=== PATIENT | female | born 1955 | race African-American/Black ===

== ENCOUNTER 2016-10-12 01:27 | Emergency (ER) | payer MEDICAID ==
[~2016-10-12] VITALS: Ht 170.2 cm; Wt 70.0 kg
[~2016-10-12 01:27] MED LIST: ALBUAER3 INH; ASPI1TAB69 PO; B12-1CHW CHEW; BLOO1KIT59 SQ; GABA300C5 PO; GLIP5TAB8 PO; GLUC1TES SQ; LANC1MIS; LIDO4PAD TOP; METF500T4 PO; METR500T10 PO; MULT1TAB78 PO; OMEP20TA PO; PROM12.54 PO
[2016-10-12 01:31] VITALS: BP 201/92; PULSE 92; RESP 18; TEMP 98.4; O2SAT 100
[2016-10-12] MEDS ORDERED: ACETAMINOPHEN 325 MG TAB PO ONE (05:00)
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
[2016-10-12 05:16] LABS: ALKALINE PHOSPHATASE 76 U/L (45-117); TOTAL BILIRUBIN ADULT 0.4 MG/DL (0.2-1.0)
[2016-10-12 05:25] LABS: ALT (GPT) 25 U/L (10-53); ANION GAP 9 MEQ/L (5-15); AST (GOT) 30 U/L (15-37); BICARBONATE 25.7 MEQ/L (21.0-32.0); BLOOD UREA NITROGEN 15 MG/DL (7-18); CHLORIDE 105 MEQ/L (98-107); GLOMERULAR FILTRATION RATE 76 ML/MIN (>89); SODIUM (NA) 140 MEQ/L (136-145)
[2016-10-12 05:36] LABS: ALCOHOL LESS THAN 3 MG/DL (0-5); POTASSIUM 4.5 MEQ/L (3.5-5.1)
[2016-10-12 06:46] LABS: AUTOMATED NEUTROPHIL # 4.4 TH/MM3 (1.8-7.7); BASOPHIL % 0.5 % (0.0-2.0); EOSINOPHIL # 0.2 TH/MM3 (0-0.4); EOSINOPHIL % 2.8 % (0.0-4.0); HEMATOCRIT 39.6 % (35.0-46.0); HEMO FLAGS DIFF FINAL; LYMPHOCYTE # 3.4 TH/MM3 (1.0-4.8); MEAN CELL VOLUME 84.5 FL (80.0-100.0); MEAN CORPUSCULAR HEMOGLOBIN 28.5 PG (27.0-34.0); MEAN CORPUSCULAR HGB CONC 33.8 % (32.0-36.0); MONO % 6.8 % (0.0-8.0); NEUT % 50.9 % (16.0-70.0); PLATELET COUNT 243 TH/MM3 (150-450); RED BLOOD COUNT 4.69 MIL/MM3 (4.00-5.30); WHITE BLOOD COUNT 8.6 TH/MM3 (4.0-11.0)
[2016-10-12 07:04] VITALS: BP 170/79; PULSE 75; RESP 16; TEMP 98.2; O2SAT 100
[2016-10-12 14:24] VITALS: BP 167/74; PULSE 70; RESP 14; O2SAT 98
--- NOTE | 2016-10-12 15:32 | EKG ---
Date Performed: 10/12/2016 Time Performed: 07:00:47 PTAGE: 61 years EKG: Sinus rhythm POSSIBLE RIGHT ATRIAL ENLARGEMENT POSSIBLE LEFT ATRIAL ENLARGEMENT LOW QRS VOLTAGE IN PRECORDIAL RENÉ DS ANTEROSEPTAL MYOCARDIAL INFARCTION ABNORMAL ECG PREVIOUS TRACING : 01/10/2016 04.52 Compared to prior tracing no significant change DOCTOR: Medardo Brock Interpretating Date/Time 10/12/2016 15:32:14
== END 2016-10-12 15:15 | disposition left against medical advice (07) ==
LOC: NEPE 01:27 → NEDAMB 15:15
DX: F43.9 Reaction to severe stress, unspecified (principal); F41.8 Other specified anxiety disorders; R94.31 Abnormal electrocardiogram [ECG] [EKG]; E11.9 Type 2 diabetes mellitus without complications; E78.00 Pure hypercholesterolemia, unspecified; Z72.0 Tobacco use; Z79.84 Long term (current) use of oral hypoglycemic drugs; Z79.899 Other long term (current) drug therapy; Z86.59 Personal history of other mental and behavioral disorders; Z86.79 Personal history of other diseases of the circulatory system
CPT/HCPCS: 80053; 80307; 85025; 93005; 99284

== ENCOUNTER 2017-05-06 13:50 | Emergency (ER) | payer MEDICAID ==
[~2017-05-06 13:50] MED LIST changes: -ASPI1TAB69 PO; -B12-1CHW CHEW; -BLOO1KIT59 SQ; +CYCL5TAB PO; +FLU60SYR19 IM; +FLUO20CA12 PO; +GLIP10TA6 PO; -GLIP5TAB8 PO; -GLUC1TES SQ; -METF500T4 PO; -METR500T10 PO; -MULT1TAB78 PO; +NAPR500T2 PO; -OMEP20TA PO; +OMEP20TA93 PO; +ONETTES4; -PROM12.54 PO; +TERC0.4C2 VAGINAL; +TRAZ50TA12 PO
[2017-05-06 14:30] VITALS: BP 123/66; PULSE 101; RESP 24; TEMP 100.4; O2SAT 100
--- NOTE | 2017-05-06 15:25 | RADRPT ---
EXAM DATE/TIME: 05/06/2017 15:09 [facility] COMPARISON: CHEST SINGLE AP, January 09, 2016, 22:09. INDICATIONS : Chest pain, cough, cold and flu symptoms for 3 days MEDICAL HISTORY : Diabetes mellitus type II. SURGICAL HISTORY : breast implants ENCOUNTER: Initial ACUITY: 3 days PAIN SCORE: 8/10 LOCATION: Bilateral chest FINDINGS: PA and lateral views of the chest demonstrate the lungs to be symmetrically aerated without evidence of mass, infiltrate or effusion. The cardiomediastinal contours are unremarkable. Osseous structure s are intact. Surgical clips in the upper abdomen. No significant changes compared to the prior study . CONCLUSION: No acute disease. No significant change has occurred. Russell Hopkins MD on May 06, 2017 at 15:22 Board Certified Radiologist. This report was verified electronically.
[2017-05-06 17:09] LABS: AUTOMATED NEUTROPHIL # 2.4 TH/MM3 (1.8-7.7); BASOPHIL % 0.5 % (0.0-2.0); EOSINOPHIL % 0.1 % (0.0-4.0); HEMATOCRIT 40.8 % (35.0-46.0); HEMOGLOBIN 14.1 GM/DL (11.6-15.3); LYMPH % 23.4 % (9.0-44.0); LYMPHOCYTE # 0.9 TH/MM3 (1.0-4.8); MEAN CORPUSCULAR HEMOGLOBIN 29.8 PG (27.0-34.0); MEAN CORPUSCULAR HGB CONC 34.6 % (32.0-36.0); MEAN PLATELET VOLUME 7.7 FL (7.0-11.0); MONO % 11.1 % (0.0-8.0); MONOCYTE # 0.4 TH/MM3 (0-0.9); NEUT % 64.9 % (16.0-70.0); PLATELET COUNT 236 TH/MM3 (150-450); RED BLOOD COUNT 4.75 MIL/MM3 (4.00-5.30); RED CELL DISTRIBUTION WIDTH 13.7 % (11.6-17.2); WHITE BLOOD COUNT 3.6 TH/MM3 (4.0-11.0)
[2017-05-06 17:32] LABS: ALBUMIN 3.6 GM/DL (3.4-5.0); AST (GOT) 21 U/L (15-37); BICARBONATE 25.1 MEQ/L (21.0-32.0); BLOOD UREA NITROGEN 9 MG/DL (7-18); CALCIUM 10.3 MG/DL (8.5-10.1); CHLORIDE 98 MEQ/L (98-107); CREATININE 0.81 MG/DL (0.50-1.00); GLOMERULAR FILTRATION RATE 87 ML/MIN (>89); GLUCOSE,RANDOM 145 MG/DL (74-106); SODIUM (NA) 134 MEQ/L (136-145)
[2017-05-06 17:34] LABS: ALT (GPT) 17 U/L (10-53)
[2017-05-06 17:35] LABS: ALKALINE PHOSPHATASE 58 U/L (45-117); TOTAL BILIRUBIN ADULT 0.4 MG/DL (0.2-1.0); TOTAL PROTEIN 8.4 GM/DL (6.4-8.2)
[2017-05-06 18:16] LABS: BILIRUBIN, URINE NEG (NEG); BLOOD, URINE NEG (NEG); GLUCOSE,URINE NEG (NEG); KETONE, URINE 10 mg/dL (NEG); MUCUS URINE FEW /lpf (OCC); NITRITE,URINE NEG (NEG); SQUAMOUS EPITHELIAL CELL URINE 11 /hpf (0-5); URINE COLOR YELLOW (YELLW/STRAW); URINE LEUKOCYTE ESTERASE NEG (NEG)
[2017-05-06] MEDS ORDERED: RESP: ALBUTEROL 2.5 MG/IPRATROPIUM 0.5 MG NEB (SCH) NEB ONE (20:30)
[2017-05-06] MEDS ORDERED: ACETAMINOPHEN 325 MG TAB PO ONE (20:30)
[2017-05-06] MEDS ORDERED: ONDANSETRON HCL 4 MG/2 ML VIAL IV PUSH ONE (20:30)
[2017-05-06] MEDS ORDERED: KETOROLAC TROMETHAMINE 30 MG/ML (IVP) VIAL IV PUSH ONE (20:30)
[2017-05-06] MEDS ORDERED: SODIUM CHLOR 0.9% 1000 ML INJ 1,000 ML IV ONE (20:30)
[2017-05-06] MEDS ORDERED: RESP: LIDOCAINE HCL 4% PF 5 ML NEB NEB ONE (20:30)
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
[2017-05-06 20:44] VITALS: TEMP 99.8
[2017-05-06] MEDS ORDERED: POTASSIUM CHLORIDE 20 MEQ CONTROLLED RELEASE TAB PO ONE (20:45)
[2017-05-06 21:10] VITALS: O2SAT 97
[2017-05-06] MEDS ORDERED: ZOFR4TAB3 SL (22:42)
[2017-05-06] MEDS ORDERED: PROM6.256 PO (22:42)
[2017-05-06] MEDS ORDERED: ALBUAER3 INH (22:42)
== END 2017-05-07 02:31 | disposition home or self-care (01) ==
LOC: NED 13:50 → NEPD 05-07 02:31
DX: J10.1 Influenza due to other identified influenza virus with other respiratory manifestations (principal); F17.210 Nicotine dependence, cigarettes, uncomplicated; E11.9 Type 2 diabetes mellitus without complications; Z79.84 Long term (current) use of oral hypoglycemic drugs
CPT/HCPCS: 71046; 80053; 81001; 85025; 87804; 94664; 96361; 96374; 96375; 99284; J1885; J2405; J7030

== ENCOUNTER 2017-06-20 20:09 | Emergency (ER) | payer MEDICAID ==
[~2017-06-20] VITALS: Ht 170.2 cm; Wt 66.0 kg
[~2017-06-20 20:09] MED LIST changes: +PROM6.256 PO; +ZOFR4TAB3 SL
[2017-06-20 20:20] VITALS: BP 142/67; PULSE 87; RESP 16; TEMP 98.4; O2SAT 100
[2017-06-20 20:31] VITALS: BP 134/77; PULSE 83; RESP 16; O2SAT 100
[2017-06-20] MEDS ORDERED: MORPHINE SULFATE 2 MG/ML SYRINGE IV PUSH ONE (20:45)
[2017-06-20] MEDS ORDERED: ONDANSETRON HCL 4 MG/2 ML VIAL IV PUSH ONE (20:45)
[2017-06-20] MEDS ORDERED: SODIUM CHLOR 0.9% 1000 ML INJ 1,000 ML IV ONE (20:45)
[2017-06-20] MEDS ORDERED: MORPHINE SULFATE 4 MG/ML INJ IV PUSH ONE (20:45)
[2017-06-20 21:29] LABS: ALBUMIN 3.8 GM/DL (3.4-5.0); ALT (GPT) 21 U/L (10-53); AST (GOT) 24 U/L (15-37); BICARBONATE 28.1 MEQ/L (21.0-32.0); BLOOD UREA NITROGEN 8 MG/DL (7-18); CALCIUM 10.1 MG/DL (8.5-10.1); CHLORIDE 101 MEQ/L (98-107); CREATININE 0.99 MG/DL (0.50-1.00); GLOMERULAR FILTRATION RATE 69 ML/MIN (>89); GLUCOSE,RANDOM 139 MG/DL (74-106); MAGNESIUM 2.2 MG/DL (1.5-2.5); SODIUM (NA) 136 MEQ/L (136-145)
[2017-06-20 21:31] LABS: ALKALINE PHOSPHATASE 67 U/L (45-117); TOTAL BILIRUBIN ADULT 0.2 MG/DL (0.2-1.0); TOTAL PROTEIN 8.5 GM/DL (6.4-8.2)
[2017-06-20 21:38] LABS: AUTOMATED NEUTROPHIL # 5.7 TH/MM3 (1.8-7.7); BASOPHIL % 0.5 % (0.0-2.0); EOSINOPHIL # 0.3 TH/MM3 (0-0.4); EOSINOPHIL % 3.2 % (0.0-4.0); HEMATOCRIT 43.8 % (35.0-46.0); LYMPH % 32.3 % (9.0-44.0); LYMPHOCYTE # 3.1 TH/MM3 (1.0-4.8); MEAN CELL VOLUME 87.7 FL (80.0-100.0); MEAN CORPUSCULAR HEMOGLOBIN 30.1 PG (27.0-34.0); MEAN CORPUSCULAR HGB CONC 34.3 % (32.0-36.0); MEAN PLATELET VOLUME 8.4 FL (7.0-11.0); MONO % 4.6 % (0.0-8.0); MONOCYTE # 0.4 TH/MM3 (0-0.9); NEUT % 59.4 % (16.0-70.0); PLATELET COUNT 303 TH/MM3 (150-450); WHITE BLOOD COUNT 9.6 TH/MM3 (4.0-11.0)
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
[2017-06-20] MEDS ORDERED: IOHEXOL 350 MG/ML 10 ML VIAL (for RAD DIAG) IVCONTRAST ONE (22:06)
--- NOTE | 2017-06-20 22:15 | RADRPT ---
EXAM DATE/TIME: 06/20/2017 21:58 [facility] COMPARISON: No previous studies available for comparison. INDICATIONS : Abdominal pain. IV CONTRAST: 75 cc Omnipaque 350 (iohexol) IV ORAL CONTRAST: No oral contrast ingested. RADIATION DOSE: 5.17 CTDIvol (mGy) MEDICAL HISTORY : Gastroesophageal reflux disease. Cardiovascular disease Substance abuse SURGICAL HISTORY : Tubal ENCOUNTER: Initial ACUITY: 1 day PAIN SCALE: 6/10 LOCATION: abdomen TECHNIQUE: Volumetric scanning of the abdomen and pelvis was performed. Using automated exposure control and ad justment of the mA and/or kV according to patient size, radiation dose was kept as low as reasonably achievable to obtain optimal diagnostic quality images. DICOM format image data is available electro nically for review and comparison. FINDINGS: Lung bases demonstrate some dependent atelectasis. There is mural thickening of the mid and distal transverse colon and the left colon with pericolonic fat stranding characteristic of a mild colitis. Numerous colonic diverticula are also present. No acute findings in the liver, spleen, adrenals, kidneys or pancreas. No free fluid. No bowel obstru ction. CONCLUSION: 1. Mild colitis, predominantly involving the left colon. Numerous colonic diverticula also present. 2. Mild fatty liver. Dmitriy Bautista MD on June 20, 2017 at 22:09 Board Certified Radiologist. This report was verified electronically.
[2017-06-21 00:14] VITALS: BP 119/63; PULSE 71; RESP 16; O2SAT 98
[2017-06-21] MEDS ORDERED: FAMO1TAB37 PO (01:09)
[2017-06-21] MEDS ORDERED: TRAM50TA PO (01:09)
[2017-06-21] MEDS ORDERED: traMADol HCL 50 MG TAB PO ONE (01:30)
== END 2017-06-21 01:33 | disposition home or self-care (01) ==
LOC: NEPC 20:09
DX: R10.84 Generalized abdominal pain (principal); K76.0 Fatty (change of) liver, not elsewhere classified; R19.7 Diarrhea, unspecified; F41.9 Anxiety disorder, unspecified; F32.9 Major depressive disorder, single episode, unspecified; E78.00 Pure hypercholesterolemia, unspecified; E11.9 Type 2 diabetes mellitus without complications; I25.2 Old myocardial infarction; F17.200 Nicotine dependence, unspecified, uncomplicated
CPT/HCPCS: 74177; 80053; 83690; 83735; 85025; 86850; 86900; 86901; 96361; 96374; 96375; 99284; J2270; J2405; J7030; Q9967

== ENCOUNTER 2017-08-03 15:09 | Emergency (ER) | payer MEDICAID ==
[~2017-08-03] VITALS: Ht 170.2 cm; Wt 65.0 kg
[~2017-08-03 15:09] MED LIST changes: -CYCL5TAB PO; +FAMO1TAB37 PO; -FLU60SYR19 IM; -FLUO20CA12 PO; -LIDO4PAD TOP; -NAPR500T2 PO; -PROM6.256 PO; -TERC0.4C2 VAGINAL; +TRAM50TA PO
[2017-08-03 15:16] VITALS: BP 108/58; PULSE 92; RESP 18; TEMP 97.2; O2SAT 99
[2017-08-03] MEDS ORDERED: POLY10O EACH EYE (17:14)
[2017-08-03] MEDS ORDERED: ZITHTAB PO (17:14)
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
== END 2017-08-03 17:41 | disposition home or self-care (01) ==
LOC: NEPD 15:09
DX: H10.32 Unspecified acute conjunctivitis, left eye (principal); J40 Bronchitis, not specified as acute or chronic; E11.9 Type 2 diabetes mellitus without complications; E78.00 Pure hypercholesterolemia, unspecified; F32.9 Major depressive disorder, single episode, unspecified; F41.9 Anxiety disorder, unspecified; I25.2 Old myocardial infarction; F14.90 Cocaine use, unspecified, uncomplicated; Z72.0 Tobacco use; Z79.84 Long term (current) use of oral hypoglycemic drugs; Z79.899 Other long term (current) drug therapy
CPT/HCPCS: 99283